=== PATIENT | female | born 1945 | race Caucasian/White ===

== ENCOUNTER 2016-12-14 15:23 | Emergency (ER) | payer OTHER ==
[~2016-12-14] VITALS: Ht 167.6 cm; Wt 126.8 kg
[2016-12-14] MEDS ORDERED: NAPROSYN500 MG PO (19:03)
[2016-12-14] MEDS ORDERED: LORTAB 10-3251 EACH PO (19:03)
[2016-12-14 20:11] VITALS: BP 124/68
== END 2016-12-14 20:18 | disposition home or self-care (01) ==
LOC: EXP 15:23 → EME 15:23 → EXP 20:18
DX: M25.562 Pain in left knee (principal); S81.812A Laceration without foreign body, left lower leg, initial encounter; W10.9XXA Fall (on) (from) unspecified stairs and steps, initial encounter; M19.012 Primary osteoarthritis, left shoulder; Z96.651 Presence of right artificial knee joint; Z96.643 Presence of artificial hip joint, bilateral; E11.9 Type 2 diabetes mellitus without complications; I10 Essential (primary) hypertension; E66.01 Morbid (severe) obesity due to excess calories; Z88.0 Allergy status to penicillin
CPT/HCPCS: 73030; 73564; 99281; 99284; J3010